=== PATIENT | male | born 1940 | race Hispanic/Latino ===

== ENCOUNTER 2017-06-24 15:57 | Inpatient (IN) | payer MEDICARE, BC ==
[2017-06-24 16:00] VITALS: BMI 24.4
--- NOTE | 2017-06-24 16:56 | RAD ---
HISTORY: Sepsis Patient COMPARISON: No prior. FINDINGS: LUNGS: No active pulmonary disease. PLEURA: No significant pleural effusion identified, no pneumothorax apparent. CARDIOVASCULAR: Normal. OSSEOUS STRUCTURES: No significant abnormalities. VISUALIZED UPPER ABDOMEN: Normal. OTHER FINDINGS: None. IMPRESSION: No active disease.
--- NOTE | 2017-06-24 17:27 | ED PDOC ---
Arrival/HPI - General Chief Complaint: Fever Time Seen by Provider: 06/24/17 16:10 Historian: Patient - History of Present Illness Narrative History of Present Illness (Text): 06/24/17 17:24 77 yo M w/ pmh of HTN, high cholesterol, esophageal stricture, c/o of multiple episodes of watery nonbloody diarrhea x 3 days with fever Tmax of 102.8, had a fever this AM of 101, took tylenol with no fever since. Was seen and treated at an urgent care in [facility], had labs done which showed dehydration and TAM, given 1 L of fluids IV. States that his symptoms started after eating a turkey sandwich. Otherwise: (-) abdominal pain, (-) nausea / vomiting, (-) urinary symptoms, (-) fever, (-) melena, (-) hematochezia. Has no history of prior abdominal surgery. PMD [place] Past Medical History - Provider Review Nursing Documentation Reviewed: Yes - Infectious Disease Hx of Infectious Diseases: None - Cardiac Hx Cardiac Disorders: Yes Hx Hypertension: Yes Hx Pacemaker: No - Pulmonary Hx Respiratory Disorders: No - Neurological Hx Neurological Disorder: No Hx Paralysis: No - HEENT Hx HEENT Disorder: No - Renal Hx Renal Disorder: No - Endocrine/Metabolic Hx Endocrine Disorders: No - Hematological/Oncological Hx Blood Disorders: No Hx Blood Transfusions: No Hx Blood Transfusion Reaction: No - Integumentary Hx Dermatological Disorder: No - Musculoskeletal/Rheumatological Hx Musculoskeletal Disorders: No - Gastrointestinal Hx Gastrointestinal Disorders: No - Genitourinary/Gynecological Hx Genitourinary Disorders: No - Psychiatric Hx Psychophysiologic Disorder: No Hx Emotional Abuse: No Hx Physical Abuse: No Hx Substance Use: No - Anesthesia Hx Anesthesia: Yes Hx Anesthesia Reactions: No Hx Malignant Hyperthermia: No - Suicidal Assessment Feels Threatened In Home Enviroment: No Family/Social History - Physician Review Nursing Documentation Reviewed: Yes Family/Social History: Unknown Family HX Smoking Status: Never Smoked Hx Alcohol Use: No Hx Substance Use: No Allergies/Home Meds Allergies/Adverse Reactions: Allergies No Known Allergies Allergy (Verified 06/24/17 15:59) Home Medications: Home Meds Medication Instructions Recorded Confirmed Amlodipine/Valsartan [Exforge 1 tab PO QAM 06/26/16 06/24/17 10-320 mg Tablet] Atorvastatin [Lipitor] 10 mg PO QAM 06/26/16 06/24/17 Lisinopril [Zestril] 20 mg PO QAM 06/26/16 06/24/17 Esomeprazole Magnesium [Nexium] 20 mg PO DAILY 08/04/16 06/24/17 Review of Systems - Review of Systems Constitutional: Normal. absent: Fatigue, Weight Change, Fevers Respiratory: Normal. absent: SOB, Cough, Sputum Cardiovascular: Normal. absent: Chest Pain, Palpitations, Edema Gastrointestinal: Normal, Diarrhea. absent: Abdominal Pain, Nausea, Vomiting Musculoskeletal: Normal. absent: Arthralgias, Back Pain, Neck Pain Skin: Normal. absent: Rash, Pruritis, Skin Lesions Physical Exam - Physical Exam Narrative Physical Exam (Text): 06/24/17 17:28 GENERAL APPEARANCE: Patient is awake, alert, oriented x 3, in no acute distress. SKIN: Warm, dry; (-) cyanosis. EYES: (-) conjunctival pallor, (-) scleral icterus. ENMT: Mucous membranes dry. NECK: (-) tenderness, (-) stiffness, (-) lymphadenopathy. CHEST AND RESPIRATORY: (-) rales, (-) rhonchi, (+) faint expiratory wheezing; breath sounds equal bilaterally. HEART AND CARDIOVASCULAR: (-) irregularity; (-) murmur, (-) gallop. ABDOMEN AND GI: (-) distention. Bowel sounds active; (-) tenderness, (-) guarding, (-) rebound, (-) palpable masses, (-) CVA tenderness. RECTAL : (-) tenderness, (-) mass, (-) stool impaction. Guiaic (-). 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 EXTREMITIES: (-) deformity, (-) edema, (+) distal pulses. NEURO AND PSYCH: Mental status as above; (-) focal findings. Vital Signs Temp Pulse Resp BP Pulse Ox 06/24/17 20:00 98.2 F 84 18 156/62 H 99 06/24/17 17:56 98.9 F 94 H 18 160/68 H 98 06/24/17 16:05 97.8 F 103 H 18 165/70 H 97 Medical Decision Making ED Course and Treatment: 06/24/17 17:27 77 yo M w/ pmh of HTN, high cholesterol, esophageal stricture, c/o of multiple episodes of watery nonbloody diarrhea x 3 days with fever. Plan: -- Labs -- IV fluids -- Urinalysis -- EKG -- CXR -- Albuterol neb x1 -- Stool for C diff / cx / occult blood -- Reassess and disposition 06/24/17 19:44 EKG: NSR at 91 bpm, (+) LBBB, (-) acute ST changes, as read by PA. CXR : NAD, as read by PA VS : Rectal T 98.9 P 94 BP 160/68 R 18 O2sat 98%RA Lab results reviewed : Hgb 10.5 (last on 06/2016 hgb was 13), Bun 36 / Creat 2.2 (last on 06/2016 Bun 34 / Creat 1.3). Diagnostic results d/w the patient in great detail. On re-evaluation, patient is laying in bed comfortably in no acute distress. IVF infusing. Patient reports no nausea, abdominal pain or diarrhea while in the ER. Still afebrile, VS : T 98.2 oral P 84 BP 156/62 R 18 O2sat 99%RA. Based on history, exam and diagnostic results plan will be for inpatient observation. Patient states he fully agrees with and understands further plan of care. I have given the patient opportunity to ask any additional questions. Case d/w Dr. Snider, agree with plan, under med inspector semiconductor wafer service. Case d/w Dr. Rodriguez, she agrees with plan for further inpt treatment. Bridge orders placed. Request to hold zestril and exforge and to consult Dr. Snider. - Lab Interpretations Lab Results: 06/24/17 17:30 06/24/17 17:30 Lab Results 06/24/17 18:30: Urine Color Light brown, Urine Appearance Cloudy, Urine pH 6.0, Ur Specific [place] 1.025, Urine Protein 100 H, Urine Glucose (UA) Negative, Urine Ketones Negative, Urine Blood Large H, Urine Nitrate Negative, Urine Bilirubin Negative, Urine Urobilinogen 0.2, Ur Leukocyte Esterase Negative, Urine RBC Tntc, Urine WBC 1 - 3, Ur Epithelial Cells 1 - 3, Urine Bacteria Few, Urine Other Uyeast 06/24/17 18:00: pO2 209 H, VBG pH 7.30 L, VBG pCO2 35.0 L, VBG HCO3 17.2 L, VBG Total CO2 18.3 L, VBG O2 Sat (Calc) 99.0 H, VBG Base Excess -8.4 L, VBG Potassium 5.5 H, Glucose 107, Lactate 0.9, FiO2 21.0, Sodium 139.0, Chloride 115.0 H, Venous Blood Potassium 5.5 H 06/24/17 17:30: Sodium 142, Potassium 4.2, Chloride 110 H, Carbon Dioxide 21, Anion Gap 15, BUN 36 H, Creatinine 2.2 H, Est GFR ( Amer) 35, Est GFR ( Non-Af Amer) 29, Random Glucose 107, Calcium 8.8, Phosphorus 4.2, Magnesium 2.0 , Total Bilirubin 0.4, AST 25, ALT 27, Alkaline Phosphatase 63, Total Protein 7.5, Albumin 3.7, Globulin 3.8, Albumin/Globulin Ratio 1.0 L 06/24/17 17:30: PT 11.4, INR 1.04, APTT 29.8 06/24/17 17:30: WBC 9.9 D, RBC 3.67, Hgb 10.5 L, Hct 32.9 L, MCV 89.6, MCH 28.6 , MCHC 31.9, RDW 13.6, Plt Count 230, MPV 10.0, Gran % 76.1 H, Lymph % (Auto) 14.9 L, [place] % (Auto) 7.5 H, Eos % (Auto) 1.3 L, Baso % (Auto) 0.2, Gran # 7.51 H, Lymph # 1.5, Craven # 0.7 H, Eos # 0.1, Baso # 0.02 - RAD Interpretation Radiology Orders: 06/24/17 16:16 CHEST PORTABLE [RAD] Stat 06/24/17 19:41 RENAL [US] Stat - Medication Orders Current Medication Orders: Acetaminophen (Tylenol 325mg Tab) 650 mg PO Q6H PRN PRN Reason: Fever >100.4 F Acetaminophen (Tylenol 325mg Tab) 650 mg PO Q4H PRN PRN Reason: Fever >100.5 F Sodium Chloride (Sodium Chloride 0.9%) 1,000 mls @ 150 mls/hr IV .Q6H40M [facility]END[facility] Last Admin: 06/24/17 21:11 Dose: 150 mls/hr eMAR Start Stop Document 06/24/17 21:11 MAURISIO (Rec: 06/24/17 21:11 MAURISIO [id number]) Intravenous Solution Start Date 06/24/17 Start Time 21:11 Ceftriaxone Sodium (Rocephin 1 Gram Ivpb) 1 gm in 100 mls @ 100 mls/hr IVPB DAILY [facility] PRN Reason: Protocol Metronidazole (Flagyl) 500 mg in 100 mls @ 100 mls/hr IVPB Q8 BRENDAN PRN Reason: Protocol Nitroglycerin (Nitro-Bid 2% Oint) 1 ea TOP Q6H PRN PRN Reason: Other Discontinued Medications Albuterol/Ipratropium (Duoneb 3 Mg/0.5 Mg (3 Ml) Ud) 3 ml IH STAT STA Stop: 06/24/17 19:17 Last Admin: 06/24/17 21:06 Dose: 3 ml Sodium Chloride (Sodium Chloride 0.9%) 1,000 mls @ 1,000 mls/hr IV .Q1H STA Stop: 06/24/17 20:15 Last Admin: 06/24/17 20:02 Dose: 1,000 mls/hr eMAR Start Stop Document 06/24/17 20:02 MAURISIO (Rec: 06/24/17 21:03 MAURISIO [id number]) Intravenous Solution Start Date 06/24/17 Start Time 20:02 End Date 06/24/17 End time 21:02 Total Infusion Time 60 - PA / RESEARCH FOOD TECHNOLOGIST / Resident Statement MD/DO has reviewed & agrees with the documentation as recorded. Disposition/Present on Arrival - Present on Arrival Any Indicators Present on Arrival: No History of DVT/PE: No History of Uncontrolled Diabetes: No Urinary Catheter: No History of Decub. Ulcer: No History Surgical Site Infection Following: None - Disposition Have Diagnosis and Disposition been Completed?: Yes Diagnosis: Dehydration, Acute kidney injury, Diarrhea Disposition: HOSPITALIZED Disposition Time: 19:46 Patient Plan: Admission Patient Problems: Current Active Problems Problem Status Onset Acute kidney injury Acute Dehydration Acute Diarrhea Acute Condition: STABLE
[2017-06-24 17:56] LABS: BASO # 0.02 K/mm3 (0.0-2.0); BASO % 0.2 % (0.0-3.0); EOS # 0.1 (0.0-0.7); EOS % 1.3 % (1.5-5.0); GRAN # 7.51 (1.4-6.5); GRAN % 76.1 % (50.0-68.0); HEMATOCRIT 32.9 % (42.0-52.0); LYMPH # 1.5 (1.2-3.4); LYMPH % 14.9 % (22.0-35.0); MEAN CELL VOLUME 89.6 fl (80.0-105.0); MEAN CORPUSCULAR HEMOGLOBIN 28.6 pg (25.0-35.0); MEAN CORPUSCULAR HGB CONC 31.9 g/dl (31.0-37.0); MONO # 0.7 (0.1-0.6); MONO % 7.5 % (1.0-6.0); RED CELL DISTRIBUTION WIDTH 13.6 % (11.5-14.5); WHITE BLOOD COUNT 9.9 10^3/ul (4.5-11.0)
[2017-06-24 18:06] LABS: BILIRUBIN,TOTAL 0.4 mg/dL (0.2-1.3); CALCIUM 8.8 mg/dL (8.4-10.5); PHOSPHOROUS 4.2 mg/dL (2.5-4.5); POTASSIUM 4.2 mmol/L (3.6-5.0); TOTAL PROTEIN 7.5 g/dL (5.8-8.3)
[2017-06-24 18:08] LABS: VENOUS BLOOD GAS BASE EXCESS -8.4 mmol/L (0.0-2.0)
[2017-06-24 18:10] LABS: INR 1.04 (0.93-1.08); PARTIAL THROMBOPLASTIN TIME 29.8 Seconds (25.1-36.5)
[2017-06-24 18:38] LABS: URINE BILIRUBIN NEGATIVE (NEGATIVE); URINE BLOOD LARGE (NEGATIVE); URINE GLUCOSE (UA) NEGATIVE (NEGATIVE); URINE KETONE NEGATIVE (NEGATIVE); URINE LEUKOCYTE ESTERASE NEGATIVE Leu/uL (NEGATIVE); URINE PROTEIN 100 mg/dL (<30 mg/dL); URINE UROBILINOGEN 0.2 E.U./dL (<1 E.U./dL)
[2017-06-24 18:40] LABS: URINE APPEARANCE CLOUDY (CLEAR); URINE COLOR LIGHT BROWN (YELLOW)
[2017-06-24 18:58] LABS: URINE RBC TNTC /hpf (0-2)
[2017-06-24 18:59] LABS: URINE BACTERIA FEW (NEG)
[2017-06-24] MEDS ORDERED: Albuterol-Ipratrop 3 mg / 0.5 (3 ml) UD IH STA (19:16)
[2017-06-24] MEDS ORDERED: Sodium Chloride 0.9% 1,000 ML IV STA (19:16)
[2017-06-24] MEDS ORDERED: Nitroglycerin 2% Ointment Foilpak UD TOP PRN (19:39)
[2017-06-24] MEDS: Sodium Chloride 0.9% 1,000 ML IV SCH (21:11)
--- NOTE | 2017-06-24 22:12 | US ---
EXAM: US Retroperitoneal Complete, Renal EXAM DATE/TIME: 06/24/2017 7:41 PM CLINICAL HISTORY: 77 years old, male; Signs and symptoms; Vomiting; Additional info: Azotemia TECHNIQUE: Real-time ultrasound of the retroperitoneum (complete) with image documentation. COMPARISON: No relevant prior studies available. FINDINGS: Right kidney: Within normal limits in appearance for age. Measures 9.9 cm in length. No evidence of hydronephrosis. No renal calculi are visible sonographically. Left kidney: Contains 2 lesions, which have ultrasound features most compatible with simple cysts. The larger measures 5 x 3.5 x 3.4 cm. The smaller measures 2.3 x 1.8 cm. both lesions are located in the upper pole. Otherwise within normal limits in appearance. Measures 10.1 cm in length. No evidence of hydronephrosis. No renal calculi are visible sonographically. Bladder: Not specifically imaged. IMPRESSION: No evidence of hydronephrosis or other acute sonographic abnormality of the kidneys. Left renal cysts. See above for remaining findings.
[2017-06-25] MEDS: metroNIDAZOLE IV 500 mg/100 ml 500 MG/100 ML BAG IVPB SCH ×4 (00:24→21:22)
[2017-06-25] MEDS: cefTRIAXone 1 gm 1 GM/100 ML BAG IVPB SCH ×2 (01:42→10:50)
[2017-06-25 07:31] LABS: HEMATOCRIT 29.1 % (42.0-52.0); MEAN CORPUSCULAR HEMOGLOBIN 28.4 pg (25.0-35.0); MEAN PLATELET VOLUME 9.8 fl (7.0-11.0); RED CELL DISTRIBUTION WIDTH 13.7 % (11.5-14.5); WHITE BLOOD COUNT 8.9 10^3/ul (4.5-11.0)
[2017-06-25 07:53] LABS: CALCIUM 8.4 mg/dL (8.4-10.5); POTASSIUM 4.2 mmol/L (3.6-5.0)
[2017-06-25 08:13] LABS: IRON 13 ug/dL (45-180)
--- NOTE | 2017-06-25 10:12 | CARD ---
APPROVED REPORT EKG Measurement Heart [id number] <Conclusion> Normal sinus rhythm Left bundle branch block Abnormal ECG
[2017-06-25 12:23] LABS: FOLATE > 20.0 ng/mL
--- NOTE | 2017-06-25 15:47 | HP ---
HISTORY OF PRESENT ILLNESS: This 77-year-old male presented to [facility], ER with complaint of recurrent and profuse diarrhea. He stated it started Sunday evening, persisted all day Sunday. He went to a local Urgent Care near [place], [place], where he resides and was found to be clinically dehydrated and advised to come to the Medical Center for further evaluation of the above. The patient states that since admission he has had five episodes of watery diarrhea and to date no samples have been collected, though ordered on his chart. PAST MEDICAL HISTORY: The patient's past medical history is significant for chronic hypertension, peptic ulcer disease with gastroesophageal reflux disease, history of esophageal stricture that has been dilated and history of hyperlipidemia. REVIEW OF SYSTEMS: CONSTITUTIONAL: The patient on review of systems on constitutional review, denied fever or chills. HEENT: On eye, review denied change in visual acuity. Ear reviewed denied hearing loss. Throat reviewed no swallowing difficulty. Neck review, no stiffness. CARDIOVASCULAR: Cardiac reviewed chronic hypertension. He denies any chest pain or shortness of breath. PULMONARY: No cough. No hemoptysis. GASTROINTESTINAL: The onset of watery diarrhea on Sunday evening that is persistent at present. GENITOURINARY: He denied any dysuria or and has a history of chronic renal insufficiency with reported previous baseline creatinine of 1.4 by Emergency Room physician who reviewed his labs from a year ago. VASCULAR: No claudication. PSYCHOLOGICAL: No depression. NEUROLOGIC: No knowledge of stroke. ENDOCRINOLOGIC: No reports of diabetes. History of hyperlipidemia. HEME: He has a history of iron-deficiency anemia secondary to gastroesophageal reflux disease and esophageal stricture when I questioned the patient if he has ever had colonoscopy he said no. FAMILY HISTORY: Non applicable. SOCIAL HISTORY: He is a nonsmoker, social drinker, and non IV drug mis-user. He is a retired gentleman. ALLERGIES: WITH NO KNOWN ALLERGIES TO MEDICATION. MEDICATIONS: Outpatient medications had included Zestril, Nexium, Lipitor and Norvasc/valsartan. PHYSICAL EXAMINATION: GENERAL: The patient is alert and oriented, lying in bed, fully cooperative and answering all questions, in no acute distress. IV fluids are infusing. VITAL SIGNS: Temperature is 97.5, respirations are 20, pulse is 85, blood pressure is 165/70 with a pulse oximetry of 97% room air. HEENT: Head is normocephalic and atraumatic. Eyes: No icterus. Ears: Clear. Throat: Noninjected. NECK: Supple CARDIOVASCULAR: Heart is regular S1 and S2. LUNGS: Clear. ABDOMEN: Soft. No palpable organomegaly. No rebound, no guarding, and no tenderness. EXTREMITIES: No clubbing, no cyanosis, and no edema. SKIN: Poor turgor. VASCULAR: Legs are warm to touch. PSYCHOLOGICAL: He is alert and oriented x3. NEUROLOGIC: Grossly intact. RECTAL: Rectal exam by emergency room staff reportedly negative for blood. LABORATORY DATA: White count of 8900, hemoglobin of 9.3, hematocrit of 29.1, and platelets 202,000. PT/INR of 1.04, and PTT of 29.8. Sodium of 144, potassium of 4.2, chloride of 117, bicarbonate of 18, BUN of 29, and creatinine of 1.6. Admission BUN of 36 and creatinine of 2.2. Magnesium is normal of 2.0. Bilirubin is 0.4, AST is 25, ALT is 27, and alkaline phosphatase of 63. Iron level is low 13, percent saturation low 5, ferritin of 52.7, B12 of 841, and folic acid level pending. Urinalysis showed too numerous to count red blood cells, no cast and few bacteria. IMPRESSION AND PLAN: He is a 77-year-old male with new onset diarrhea acute on chronic renal failure in the setting of clinical dehydration, iron-deficiency anemia, history of esophageal stricture chronic hypertension and hyperlipidemia. The plan as discussed with the patient and nursing in detail is to continue intravenous fluids of 0.9 saline at 150 mL per hour. He is ordered to have a consultation with Dr. Qi Snider from Gastrointestinal and Dr. Dwight Cordova from Infectious Diseases. He continues on nitroglycerin 1 inch to chest wall q. 6 hours. p.r.n. accelerated hypertension if systolic blood pressure greater than 160 or diastolic blood pressure greater than 100. I have asked the nursing staff to ensure that he obtain his stools for culture and sensitivity, ova and parasites of stool and Clostridium difficile toxin. Urine culture has been received as well. He is ordered to have Tylenol 650 mg p.o. q. 6 hours. p.r.n. pain or temperature greater than 101. He has been ordered to receive Flagyl 500 mg intravenous q. 8 hours. and Rocephin 1 gram intravenous q. [address] Qi Snider from Gastroenterology. The patient is on a clear liquid diet as tolerated. I will order Pepcid 20 mg p.o. at bedtime and follow serial laboratories. The patient was advised that because of his hematuria, he will need outpatient urological followup and probable cystoscopy and prostate evaluation. I did review his chest x-ray that shows no active disease and no infiltrate and electrocardiogram that showed normal sinus rhythm with nonspecific ST-T wave changes and a renal ultrasound that showed no evidence of renal masses hydronephrosis or stones. Additional testing and workup will be entertained based on the patient's clinical progress. Greater than fifty minutes was spent in the care, counseling, management, review of labs ordering of medication and review of x-rays and talking with staff and co-consultants and the patient at bedside. All questions were answered. Maya Rodriguez MD MTDD
[2017-06-25] MEDS: Sodium Chloride 0.9% 1,000 ML IV SCH (18:50)
--- NOTE | 2017-06-25 19:07 | CP.PCM.CON ---
History of Present Illness - History of Present Illness History of Present Illness: Infectious Disease Consulation: June 25, 2017 77 yo male with recurrent and profuse diarrhea. Symptoms started on Sunday night and continued to Sunday. Patient had fevers up to 102.8 F. The patient went to an Urgent Care where he received 1L of IV fluids. He states symptoms started after eating a turkey sandwich. Supportive care. PMHx: HTN, high cholesterol, esophageal stricture PSHx: None given Allergies: NKDA Social Hx: No tobacco, EtOH, or illicit drug use Active Medications Acetaminophen (Tylenol 325mg Tab) 650 mg PO Q6H PRN PRN Reason: Fever >100.4 F Acetaminophen (Tylenol 325mg Tab) 650 mg PO Q4H PRN PRN Reason: Fever >100.5 F Amlodipine Besylate (Norvasc) 5 mg PO DAILY [facility] Last Admin: 06/25/17 12:55 Dose: 5 mg Famotidine (Pepcid) 20 mg PO HS [facility] Sodium Chloride (Sodium Chloride 0.9%) 1,000 mls @ 150 mls/hr IV .Q6H40M [facility] Last Admin: 06/25/17 18:50 Dose: 150 mls/hr Ceftriaxone Sodium (Rocephin 1 Gram Ivpb) 1 gm in 100 mls @ 100 mls/hr IVPB DAILY [facility] PRN Reason: Protocol Last Admin: 06/25/17 10:50 Dose: 100 mls/hr Metronidazole (Flagyl) 500 mg in 100 mls @ 100 mls/hr IVPB Q8 [facility] PRN Reason: Protocol Last Admin: 06/25/17 14:44 Dose: 100 mls/hr Nitroglycerin (Nitro-Bid 2% Oint) 1 ea TOP Q6H PRN PRN Reason: Other Family Hx: none given ROS: fevers, diarrhea, abdominal discomfort. No chest pain, melena, hematuria, hematemesis, hematochezia, depression, anxiety , diarrhea, LOC, dizziness, blindness, cough, vomiting, SOB. Past Patient History - Infectious Disease Hx of Infectious Diseases: None - Past Social History Smoking Status: Never Smoked - CARDIAC Hx Cardiac Disorders: Yes Hx Hypertension: Yes Hx Pacemaker: No - PULMONARY Hx Respiratory Disorders: No - NEUROLOGICAL Hx Neurological Disorder: No - HEENT Hx HEENT Problems: No - RENAL Hx Chronic Kidney Disease: No - ENDOCRINE/METABOLIC Hx Endocrine Disorders: No - HEMATOLOGICAL/ONCOLOGICAL Hx Blood Disorders: No - INTEGUMENTARY Hx Dermatological Problems: No - MUSCULOSKELETAL/RHEUMATOLOGICAL Hx Musculoskeletal Disorders: No Hx Falls: No - GASTROINTESTINAL Hx Gastrointestinal Disorders: No - GENITOURINARY/GYNECOLOGICAL Hx Genitourinary Disorders: No - PSYCHIATRIC Hx Psychophysiologic Disorder: No Hx Emotional Abuse: No Hx Physical Abuse: No - SURGICAL HISTORY Hx Surgeries: Yes - ANESTHESIA Hx Anesthesia: Yes Hx Anesthesia Reactions: No Hx Malignant Hyperthermia: No Meds Allergies/Adverse Reactions: Allergies Allergy/AdvReac Type Severity Reaction Status Date / Time No Known Allergies Allergy Verified 06/24/17 15:59 - Medications Medications: Current Medications Acetaminophen (Tylenol 325mg Tab) 650 mg PO Q6H PRN PRN Reason: Fever >100.4 F Acetaminophen (Tylenol 325mg Tab) 650 mg PO Q4H PRN PRN Reason: Fever >100.5 F Amlodipine Besylate (Norvasc) 5 mg PO DAILY [facility] Last Admin: 06/25/17 12:55 Dose: 5 mg Famotidine (Pepcid) 20 mg PO HS [facility] Sodium Chloride (Sodium Chloride 0.9%) 1,000 mls @ 150 mls/hr IV .Q6H40M [facility] Last Admin: 06/25/17 18:50 Dose: 150 mls/hr Ceftriaxone Sodium (Rocephin 1 Gram Ivpb) 1 gm in 100 mls @ 100 mls/hr IVPB DAILY [facility] PRN Reason: Protocol Last Admin: 06/25/17 10:50 Dose: 100 mls/hr Metronidazole (Flagyl) 500 mg in 100 mls @ 100 mls/hr IVPB Q8 [facility] PRN Reason: Protocol Last Admin: 06/25/17 14:44 Dose: 100 mls/hr Nitroglycerin (Nitro-Bid 2% Oint) 1 ea TOP Q6H PRN PRN Reason: Other Physical Exam - Constitutional Appears: Non-toxic, No Acute Distress - Head Exam Head Exam: ATRAUMATIC, NORMOCEPHALIC - Eye Exam Eye Exam: EOMI, PERRL Pupil Exam: NORMAL ACCOMODATION, PERRL - ENT Exam ENT Exam: Mucous Membranes Moist, Normal External Ear Exam, TM's Normal Bilaterally - Neck Exam Neck exam: Positive for: Full Rom, Normal Inspection - Respiratory Exam Respiratory Exam: Clear to Auscultation Bilateral, NORMAL BREATHING PATTERN. absent: Rales, Rhonchi, Wheezes - Cardiovascular Exam Cardiovascular Exam: REGULAR RHYTHM, RRR, +S1, +S2 - GI/Abdominal Exam GI & Abdominal Exam: Normal Bowel Sounds, Soft. absent: Distended, Tenderness - Extremities Exam Extremities exam: Positive for: full ROM, normal inspection - Neurological Exam Neurological exam: Alert, CN II-XII Intact, Oriented x3 - Psychiatric Exam Psychiatric exam: Normal Affect, Normal Mood - Skin Skin Exam: Intact, Normal Color Results - Vital Signs Recent Vital Signs: Last Vital Signs Temp 98.1 F 06/25/17 16:04 Pulse 77 06/25/17 16:04 Resp 20 06/25/17 16:04 BP 134/70 06/25/17 16:04 Pulse Ox 98 06/25/17 16:04 - Labs Result Diagrams: 06/25/17 07:00 06/25/17 07:00 Labs: Laboratory Results - last 24 hr 06/25/17 06/25/17 06/25/17 07:00 07:00 07:49 WBC 8.9 RBC 3.27 L Hgb 9.3 L Hct 29.1 L MCV 89.0 MCH 28.4 MCHC 32.0 RDW 13.7 Plt Count 202 MPV 9.8 Sodium 144 Potassium 4.2 Chloride 117 H Carbon Dioxide 18 L Anion Gap 13 BUN 29 H Creatinine 1.6 H Est GFR ( Amer) 51 Est GFR (Non-Af Amer) 42 Random Glucose 87 Calcium 8.4 Iron 13 L TIBC 270 % Saturation 5 L Assessment & Plan - Assessment and Plan (Free Text) Assessment: 77 yo male with 3 days of profuse diarrhea. Fevers up to 102.8 F. Obtain Abdominal X-ray to help determine colitis/diverticulitis. Patient may need CT scan. IV hydration. Supportive care. On IV Rocephin and Flagyl at this time. C. diff studies. Stool studies. Would obtain tabares cultures with next fever. Would also switch Rocephin to Zosyn for coverage as Rocephin has a much high chance of altering bowel microbiology. Thank you for allowing me to participate in the care of the patient, we will follow with you.
[2017-06-25] MEDS: Piperacillin/Tazobact 3.375 gm 100 ML IVPB SCH (23:20)
--- NOTE | 2017-06-26 00:57 | CON ---
DATE: 06/25/2017 HISTORY OF PRESENT ILLNESS: This patient was seen and evaluated earlier today. This 77-year-old patient had some turkey on , Sunday he was okay, Sunday morning, he had some egg, in the evening he had acute watery diarrhea and he was spiking temperature. He was seen on Sunday in [facility] [place]. He was found to be dehydrated with creatinine of 2.6. He was advised to go to the Emergency Room, but he did not go. He came to the [facility] Emergency Room on Sunday evening. He was found to have creatinine of 2.2, has come down. The patient remained afebrile here in the hospital. PAST MEDICAL HISTORY: His other past medical history is significant for esophageal stricture, Schatzki's Ring, status post dilation. The patient had an endoscopy done initially this year, which is found to have an ulceration. The patient was concerned about taking PPI, was changed to H2 blockers, then followup endoscopy showed recurrence of the ulceration. The patient was then put back on low-dose PPI along with the H2 blockers, which he has been taking it. The patient is tolerating the diet now. Other past medical history is significant as above,has dyslipidemia and hypertension. FAMILY HISTORY: Noncontributory. ALLERGIES: NO KNOWN DRUG ALLERGIES. SOCIAL HISTORY: Denies smoking. Alcohol socially. REVIEW OF SYSTEMS: All other systems reviewed and negative. PHYSICAL EXAMINATION GENERAL: The patient is lying on the bed, not in acute distress. VITAL SIGNS: Temperature is 98.1, blood pressure 134/70, pulse 77, respirations 20, O2 saturation 98. HEENT: Atraumatic and anicteric. NECK: Supple. HEART: S1 and S2 heard. LUNGS: Bilateral air entry present. ABDOMEN: Soft. There is no mass palpable. No tenderness. EXTREMITIES: No edema, no cyanosis. NEUROLOGICAL: Alert and oriented. Moves all extremities. LABORATORY DATA: Hemoglobin is 9.3, hematocrit 29.1, WBC is 8.9, platelets 202. Chemistries, BUN is 36, creatinine is 2.2. IMPRESSION: 1. This 77-year-old patient has an acute onset of diarrhea, vomiting and has a high fever, clinically is more suggestive of acute gastroenteritis. Concern is that T-max of 102. The patient remains afebrile in the hospital. 2. History of chronic gastroesophageal reflux disease, history of dysphagia, Schatzki's ring, status post dilation, recurrence of the ulceration. The patient is on maintenance low-dose proton pump inhibitor along with H2 franca, which we will continue. 3. Other comorbidities include hypertension and dyslipidemia. RECOMMENDATIONS: 1. Follow up of the stool studies. 2. Follow up of the blood cultures. 3. We will start the patient empirically on ceftriaxone and Flagyl. We will continue to closely followup care and suggest further management based on the clinical course. We will probably start the patient on a clear liquid diet. Thank you very much for allowing me to participate in the care of the patient. Qi Snider MD MTDEduardo
[2017-06-26] MEDS: Piperacillin/Tazobact 3.375 gm 100 ML IVPB SCH ×3 (05:45→17:03)
[2017-06-26] MEDS: metroNIDAZOLE IV 500 mg/100 ml 500 MG/100 ML BAG IVPB SCH ×3 (06:35→21:30)
[2017-06-26 07:29] LABS: HEMATOCRIT 29.3 % (42.0-52.0)
[2017-06-26 07:42] LABS: CALCIUM 8.6 mg/dL (8.4-10.5); POTASSIUM 3.9 mmol/L (3.6-5.0)
--- NOTE | 2017-06-26 09:50 | RAD ---
HISTORY: diarrhea COMPARISON: No prior. FINDINGS: BOWEL: Normal. No obstruction. No free air. BONES: Normal. OTHER FINDINGS: None. IMPRESSION: No active disease.
--- NOTE | 2017-06-26 12:03 | CP.PCM.PN ---
<Amelie Rawls - Last Filed: 06/26/17 12:03> Subjective - Date & Time of Evaluation Date of Evaluation: 06/26/17 Time of Evaluation: 10:25 - Subjective Subjective: S&E at bedside, diarrhea improving had 2 so far, less loose, no bleeding. Tolerated breakfast. Abdominal xray this am negative. No abdominal pain. Objective - Vital Signs/Intake and Output Vital Signs (last 24 hours): Temp Pulse Resp BP Pulse Ox 97.8 F 73 17 141/58 L 93 L 06/26/17 07:31 06/26/17 07:31 06/26/17 07:31 06/26/17 07:31 06/26/17 07:31 Intake and Output: 06/26/17 06/26/17 06:59 18:59 Intake Total 780 Balance 780 - Medications Medications: Current Medications Acetaminophen (Tylenol 325mg Tab) 650 mg PO Q6H PRN PRN Reason: Fever >100.4 F Acetaminophen (Tylenol 325mg Tab) 650 mg PO Q4H PRN PRN Reason: Fever >100.5 F Amlodipine Besylate (Norvasc) 5 mg PO DAILY [facility] Last Admin: 06/26/17 09:23 Dose: 5 mg Famotidine (Pepcid) 20 mg PO HS [facility] Last Admin: 06/25/17 21:22 Dose: 20 mg Metronidazole (Flagyl) 500 mg in 100 mls @ 100 mls/hr IVPB Q8 [facility] PRN Reason: Protocol Last Admin: 06/26/17 06:35 Dose: 100 mls/hr Piperacillin Sod/Tazobactam Sod (Zosyn 3.375 In Ns 100ml) 100 mls @ 200 mls/hr IVPB Q6 [facility] PRN Reason: Protocol Last Admin: 06/26/17 05:45 Dose: 200 mls/hr Sodium Chloride (Sodium Chloride 0.9%) 1,000 mls @ 100 mls/hr IV .Q10H [facility] Nitroglycerin (Nitro-Bid 2% Oint) 1 ea TOP Q6H PRN PRN Reason: Other - Labs Labs: 06/26/17 07:24 06/26/17 07:24 PT 11.4 SECONDS (9.4-12.5) 06/24/17 17:30 INR 1.04 (0.93-1.08) 06/24/17 17:30 APTT 29.8 Seconds (25.1-36.5) 06/24/17 17:30 - Constitutional Appears: No Acute Distress - Eye Exam Eye Exam: Normal appearance. absent: Scleral icterus - ENT Exam ENT Exam: Mucous Membranes Moist - Neck Exam Neck Exam: Normal Inspection - Respiratory Exam Respiratory Exam: NORMAL BREATHING PATTERN. absent: Respiratory Distress - Cardiovascular Exam Cardiovascular Exam: +S1, +S2 - GI/Abdominal Exam GI & Abdominal Exam: Soft, Normal Bowel Sounds. absent: Guarding, Tenderness, Rebound - Extremities Exam Extremities Exam: absent: Calf Tenderness, Pedal Edema - Neurological Exam Neurological Exam: Alert, Awake, Oriented x3 - Skin Skin Exam: Dry, Warm Assessment and Plan - Assessment and Plan (Free Text) Assessment: ASSESSMENT: Acute diarrhea/nausea/fever, maybe gastroenteritis Esophageal stricture/Shatzki's Ring UTI, (+) gram negative sarah Chronic GERD Dehydration Acute RF HTN Dyslipidemia PLAN: FU stool stool studies on Flagyl/Zosyn as per ID on clear liquids on IVF monitor electrolytes continue Pepcid FU ct scan A&P Seen and discussed w/ Dr. Longo. <Qi Snider V - Last Filed: 06/26/17 19:31> Objective - Vital Signs/Intake and Output Vital Signs (last 24 hours): Temp Pulse Resp BP Pulse Ox 98 F 74 20 167/82 H 96 06/26/17 16:37 06/26/17 16:37 06/26/17 16:37 06/26/17 16:37 06/26/17 16:37 - Medications Medications: Current Medications Acetaminophen (Tylenol 325mg Tab) 650 mg PO Q6H PRN PRN Reason: Fever >100.4 F Amlodipine Besylate (Norvasc) 5 mg PO DAILY [facility] Last Admin: 06/26/17 09:23 Dose: 5 mg Famotidine (Pepcid) 20 mg PO HS [facility] Last Admin: 06/25/17 21:22 Dose: 20 mg Metronidazole (Flagyl) 500 mg in 100 mls @ 100 mls/hr IVPB Q8 [facility] PRN Reason: Protocol Last Admin: 06/26/17 13:06 Dose: 100 mls/hr Piperacillin Sod/Tazobactam Sod (Zosyn 3.375 In Ns 100ml) 100 mls @ 200 mls/hr IVPB Q6 [facility] PRN Reason: Protocol Last Admin: 06/26/17 17:03 Dose: 200 mls/hr Sodium Chloride (Sodium Chloride 0.9%) 1,000 mls @ 100 mls/hr IV .Q10H [facility] Last Admin: 06/26/17 13:05 Dose: 100 mls/hr Nitroglycerin (Nitro-Bid 2% Oint) 1 ea TOP Q6H PRN PRN Reason: Other - Labs Labs: PT 11.4 SECONDS (9.4-12.5) 06/24/17 17:30 INR 1.04 (0.93-1.08) 06/24/17 17:30 APTT 29.8 Seconds (25.1-36.5) 06/24/17 17:30 Attending/Attestation - Attestation I have personally seen and examined this patient.: Yes I have fully participated in the care of the patient.: Yes I have reviewed all pertinent clinical information, including history, physical exam and plan: Yes Notes (Text): This is an addendum to GI progress report dictated by Amelie Rawls APN.The patient was seen and examined earlier. Medical records, lab studies, imagings were reviewed. Last 24 hours events reviewed. Agreed with the above treatment plan as outlined in Amelie Rawls APN's notes the with the addition of the following patient was seen and evaluated here earlier patient's was at bedside Feeling much better. Renal function is improving Urine culture grew gram-negative rods Ceftriaxone is no change to Zosyn On examination abdomen soft mild tenderness on deep palpation On liquid diet Requested CT of the abdomen and pelvis with by mouth contrast will follow-up thank you very much for allowing us to participate in the care of the patient 06/26/17 19:29
[2017-06-26] MEDS: Sodium Chloride 0.9% 1,000 ML IV SCH (13:05)
[2017-06-26] MEDS ORDERED: Barium Sulfate Susp 2.1% w/v, 2.0% w/w 450 mL Bottle PO ONE (14:29)
--- NOTE | 2017-06-26 16:35 | CP.PCM.PN ---
Subjective - Date & Time of Evaluation Date of Evaluation: 06/26/17 Time of Evaluation: 12:00 - Subjective Subjective: Infectious Disease Follow Up: June 26, 2017 77 yo male with recurrent and profuse diarrhea. Symptoms started on Sunday night and continued to Sunday. Patient had fevers up to 102.8 F. The patient went to an Urgent Care where he received 1L of IV fluids. He states symptoms started after eating a turkey sandwich. Supportive care. Positive urine cultures with gram negative rods Full identification pending. Objective - Vital Signs/Intake and Output Vital Signs (last 24 hours): Temp Pulse Resp BP Pulse Ox 97.8 F 73 17 141/58 L 93 L 06/26/17 07:31 06/26/17 07:31 06/26/17 07:31 06/26/17 07:31 06/26/17 07:31 - Medications Medications: Current Medications Acetaminophen (Tylenol 325mg Tab) 650 mg PO Q6H PRN PRN Reason: Fever >100.4 F Amlodipine Besylate (Norvasc) 5 mg PO DAILY [facility] Last Admin: 06/26/17 09:23 Dose: 5 mg Famotidine (Pepcid) 20 mg PO HS [facility] Last Admin: 06/25/17 21:22 Dose: 20 mg Metronidazole (Flagyl) 500 mg in 100 mls @ 100 mls/hr IVPB Q8 [facility] PRN Reason: Protocol Last Admin: 06/26/17 13:06 Dose: 100 mls/hr Piperacillin Sod/Tazobactam Sod (Zosyn 3.375 In Ns 100ml) 100 mls @ 200 mls/hr IVPB Q6 [facility] PRN Reason: Protocol Last Admin: 06/26/17 13:05 Dose: 200 mls/hr Sodium Chloride (Sodium Chloride 0.9%) 1,000 mls @ 100 mls/hr IV .Q10H [facility] Last Admin: 06/26/17 13:05 Dose: 100 mls/hr Nitroglycerin (Nitro-Bid 2% Oint) 1 ea TOP Q6H PRN PRN Reason: Other - Labs Labs: PT 11.4 SECONDS (9.4-12.5) 06/24/17 17:30 INR 1.04 (0.93-1.08) 06/24/17 17:30 APTT 29.8 Seconds (25.1-36.5) 06/24/17 17:30 - Constitutional Appears: Non-toxic, No Acute Distress - Head Exam Head Exam: ATRAUMATIC, NORMOCEPHALIC - Eye Exam Eye Exam: EOMI, PERRL Pupil Exam: NORMAL ACCOMODATION, PERRL - ENT Exam ENT Exam: Mucous Membranes Moist, Normal External Ear Exam, TM's Normal Bilaterally - Neck Exam Neck Exam: Full ROM, Normal Inspection - Respiratory Exam Respiratory Exam: Clear to Ausculation Bilateral, NORMAL BREATHING PATTERN. absent: Rales, Rhonchi, Wheezes - Cardiovascular Exam Cardiovascular Exam: REGULAR RHYTHM, RRR, +S1, +S2 - GI/Abdominal Exam GI & Abdominal Exam: Soft, Normal Bowel Sounds. absent: Distended, Tenderness - Extremities Exam Extremities Exam: Full ROM, Normal Inspection - Neurological Exam Neurological Exam: Alert, Awake, CN II-XII Intact, Oriented x3 - Psychiatric Exam Psychiatric exam: Normal Affect, Normal Mood - Skin Skin Exam: Intact, Normal Color Assessment and Plan - Assessment and Plan (Free Text) Assessment: 77 yo male with 3 days of profuse diarrhea. Fevers up to 102.8 F. Obtain Abdominal X-ray to help determine colitis/diverticulitis. Patient may need CT scan. IV hydration. Supportive care. On IV Rocephin and Flagyl at this time. C. diff studies. Stool studies. Would obtain tabares cultures with next fever. Would also switch Rocephin to Zosyn for coverage as Rocephin has a much high chance of altering bowel microbiology. Urine cultures with gram negative rods. Thank you for allowing me to participate in the care of the patient, we will follow with you.
[2017-06-26 16:39] VITALS: RESP 20
[2017-06-27] MEDS: Piperacillin/Tazobact 3.375 gm 100 ML IVPB SCH ×3 (00:03→12:12)
--- NOTE | 2017-06-27 00:10 | CT ---
EXAM: CT Abdomen and Pelvis With Intravenous Contrast CLINICAL HISTORY: 77 years old, male; Pain; Abdominal pain; Acute; Additional info: R/O diverticulitis TECHNIQUE: Axial computed tomography images of the abdomen and pelvis with intravenous contrast. All CT scans at this facility use one or more dose reduction techniques, viz.: automated exposure control; ma/kV adjustment per patient size (including targeted exams where dose is matched to indication; i.e. head); or iterative reconstruction technique. MIP reconstructed images were created and reviewed. Coronal and sagittal reformatted images were created and reviewed. COMPARISON: None. FINDINGS: Lower thorax: The bilateral lung bases are clear. ABDOMEN: Liver: The liver is enlarged and demonstrates diffuse fatty infiltration. Gallbladder and bile ducts: The gallbladder is decompressed, and contains multiple dependent calcified stones. No significant intra- or extrahepatic biliary ductal dilation. Pancreas: Enhances homogeneously. No ductal dilation. No discrete mass. Spleen: No acute findings. Adrenals: No acute findings. Kidneys and ureters: No acute findings. No hydronephrosis or renal calculi. No discrete solid mass. PELVIS: Bladder: No acute findings. Reproductive: No acute findings. Appendix: The appendix is of normal caliber (series 2, image 87) . ABDOMEN and PELVIS: Stomach and bowel: Oral contrast extends to the level of the colon, without obstruction. Mural thickening within the rectum, for which direct visualization is recommended, as a malignancy may have a similar appearance. No diverticulosis, or CT evidence of diverticulitis. Peritoneum: No significant fluid collection. No free air. Lymph nodes: No pathologically enlarged lymph nodes. Vasculature: Calcified atherosclerotic disease. Bones: No acute fracture. IMPRESSION: Cholelithiasis. Normal appendix. Mural thickening within the rectum, for which direct visualization is recommended, as a malignancy may have a similar appearance. No diverticulosis, or CT evidence of diverticulitis.
[2017-06-27] MEDS: metroNIDAZOLE IV 500 mg/100 ml 500 MG/100 ML BAG IVPB SCH ×3 (05:33→21:06)
[2017-06-27] MEDS: Pantoprazole 20 mg EC Tab PO SCH (06:38)
[2017-06-27 07:12] LABS: HEMATOCRIT 27.8 % (42.0-52.0)
[2017-06-27 07:18] LABS: CALCIUM 8.7 mg/dL (8.4-10.5)
--- NOTE | 2017-06-27 07:32 | PQF RENAL ---
This form is a permanent part of the medical record Dr. Rodriguez, Your H &P includes documentation of "acute on chronic kidney failure". Please specify stage of CKD present in this patient. Clarification of your documentation is requested to better reflect the severity of illness and intensity of treatment of your patient. Indicators present [] Oliguria/anuria [] Edema/weight gain [] Hyponatremia [] Confusion/mental status changes [x] Increased Blood Urea Nitrogen/Creatinine [] Increased Potassium/Decreased potassium [] Anemia (male <13.5, female <12.0) [] Proteinuria [] Metabolic Acidosis OR Alkalosis [] Hypotension/shock [] Decreased GFR [] Other: [] Location in the medical record that reflects the above clinical findings: PHYSICIAN'S RESPONSE Based on your medical judgment of the clinical indicators outlined above, are you treating this patient for a known or suspected: [] Acute Renal Failure [] Acute Kidney Injury [] Azotemia/prerenal azotemia [] Chronic kidney disease Stage I [] Stage II [] Stage III [] Stage IV [] [] Other condition/diagnosis:[] [x] If Unable to Determine, please check the box, sign and date. Present On Admission (POA) Indicator: [x] Present at the time of admission [] Not present at the time of admission [] Clinically Undetermined In responding to this query, please exercise your independent professional judgment. The fact that a question is asked does not imply that any particular answer is desired or expected. Thank you for your clarification on this documentation. If you have any questions please call:[ ] * Thank you, [ ]Megan Antony [facility] #[id number] Chronic Kidney Disease Stages *[employer]* Stage I GFR >90 Stage II GFR 60-89 Stage III GFR 30-59 Stage IV GFR 15-29 Stage V~~~~~~~~~~ GFR <15~~~~~~~~~~~~~ MTDD
--- NOTE | 2017-06-27 08:13 | PN ---
DATE: 06/26/2017 SUBJECTIVE: This 77-year-old male was examined at the bedside in the presence of his nurse, Kalani Donnelly, registered nurse. The patient states that since yesterday he has had approximately 10 diarrheal bowel movements,. He denies any fever, chills, hematemesis or melena. He states that the stool is watery in nature and contains no blood that he can notice. He remains weak and deconditioned. He is lying in bed receiving IV fluids and denies any vomiting. PHYSICAL EXAMINATION: VITAL SIGNS: Temperature 97.8, respirations 17, pulse 73, blood pressure 141/58, previously 134/70 with a pulse ox of 98% on room air. HEENT: Head normocephalic, atraumatic. Eyes: No icterus. Ears clear. Throat: Noninjected. NECK: Supple. HEART: Regular S1, S2. No pathological rubs, murmurs or gallops. LUNGS: Clear. ABDOMEN: Soft. No palpable organomegaly. No rebound, no guarding. No tenderness. Hyperactive bowel sounds are present in all four quadrants. EXTREMITIES: Show no clubbing, no cyanosis, no edema. SKIN: Decreased skin turgor but improved from yesterday. VASCULAR: Legs warm to touch. PSYCHOLOGICAL: Alert and anxious. NEUROLOGIC: Grossly intact. LABORATORY DATA: Hemoglobin 9.4, hematocrit 29.3, on admission 10.5; hematocrit 32.9. PT/INR 1.04, PTT 29.8. Sodium 144, K 3.9, chloride 117, bicarb 19, BUN 19, creatinine 1.4, original BUN 36, creatinine 2.2. Estimated GFR 49 mL per minute, iron level low 13, TIBC 270, percent saturation low 5%, ferritin 52.7, vitamin B12 841, folic acid level greater than 20. All liver function testing was normal including bilirubin 0.4, AST 25, ALT 27, alk phos 63. Urinalysis showed too numerous to count red blood cells, few bacteria. Microbiology reports blood cultures no growth at 24 hours. Urine culture is growing a gram-negative sarah, identification and sensitivity pending. Renal ultrasound, No hydronephrosis, no masses, no stones. Chest x-ray: No active disease. No infiltrate. No effusions, no CHF. EKG was reviewed. It reveals normal sinus rhythm with a left bundle branch block and nonspecific ST-T wave changes. IMPRESSION: A 77-year-old male with diarrhea recurrent, clinical dehydration, chronic renal insufficiency stage III, chronic hypertension, history of hyperlipidemia, anxiety neurosis, degenerative arthritis, urinary tract infection, iron-deficiency anemia, metabolic acidosis in the setting of diarrhea. PLAN: As discussed with the patient, nursing, family and co-consultants is to obtain a CT of abdomen without contrast to further evaluate causes of persistent diarrhea including possible diverticulitis. The patient has had stools sent for C. diff toxin, O&P and stool for C and S, results are pending. The patient is currently receiving Zosyn 3.375 g IV q.6 hours adjusted from Rocephin 1 g IV q.24 and also continues on Flagyl 500 mg IV q.8. He is ordered to receive nitroglycerin 1 inch to chest wall q.6h. p.r.n. accelerated hypertension if systolic blood pressure greater than 160 or diastolic blood pressure greater than 100, Norvasc 5 mg p.o. daily has been instituted. He continues on Pepcid 20 mg p.o. at bedtime. He has refused any consideration of proton pump inhibitors. He continues on IV fluids of 0.9 saline dose reduced for 150 to 100 mL per hour and has an order for Tylenol 650 mg p.o. q.6h. p.r.n. pain or temperature greater than 101. He is ordered to have a clear liquid diet which I would not advance until the results of CT of abdomen and pelvis are reviewed by gastroenterology. The patient is ordered out of bed to chair with ambulation with assistance and as discussed with the patient and his , Lucy Borges, he will need a full colonoscopy and endoscopy when stable. I am ordering of PSA and have explained to the patient and his that he will need to follow up with urology regarding his hematuria and consideration for possible cystoscopy with retrograde pyelogram studies for further evaluation of this finding. Greater than 35 minutes was spent in the care, management, counseling and ordering of testing and medications and labs for this patient today. The case was reviewed in detail with himself, his and nurse as well as co-consultants and all x-ray reports, labs and medications were reviewed for this patient today. All questions were answered. Maya Rodriguez MD MTDEduardo
[2017-06-27] MEDS: Sodium Chloride 0.9% 1,000 ML IV SCH (09:37)
--- NOTE | 2017-06-27 14:58 | PN ---
SUBJECTIVE: This 77-year-old male was examined at his bedside in the presence of his nurse, Alaina Lundberg, registered nurse. The patient was out of bed to chair. He states he has had approximately 3 to 5 diarrheal bowel movements since yesterday. He remains on a clear liquid diet as recommended by Gastroenterology. Initially, he refused his CAT scan of the abdomen and pelvis, but when readvised by Dr. Qi Snider from GI, he did proceed with testing. I have reviewed his abdominal pelvic CT. It reveals gallstones, a normal appendix, mural thickening within the rectum for which direct visualization was recommended as a malignancy may have a similar appearance. No diverticulosis nor diverticulitis was noted. This was discussed with the patient in detail. The patient at present is afebrile. He is receiving IV fluids. He is denying fever or chills and remains highly anxious regarding all of the above. PHYSICAL EXAMINATION: VITAL SIGNS: Temperature 97.8, respirations 20, pulse 77, blood pressure 131/71, and a pulse ox of 96% on room air. HEENT: Head; normocephalic, atraumatic. Eyes; no icterus. Ears; clear. Throat; noninjected. NECK: Supple. HEART: Regular S1, S2. No pathological rubs, murmurs or gallops. LUNGS: Clear to auscultation. ABDOMEN: Soft. Hyperactive bowel sounds. No rebound, no guarding. No tenderness. EXTREMITIES: No clubbing, no cyanosis, no edema, improving skin turgor. VASCULAR: Legs warm to touch. PSYCHOLOGICAL: Alert and anxious. NEURO: Grossly intact. SKIN; No rashes or ulcerations. LABORATORY DATA: Sodium 144, K 4.0, chloride 116, bicarb 19, BUN 16, creatinine 1.6. Estimated GFR 42 mL per minute. Random glucose 110. Iron level low 13, TIBC 270, percent saturation low 5%, ferritin level 52.7, B12 normal 841, folic acid greater than 20, PSA 0.5. Hemoglobin 8.9, hematocrit 27.8, PT/INR 1.04, PTT 29.8. Urinalysis; too numerous to count RBCs per high-power field, few bacteria, C. diff toxin negative. Microbiology studies; ova and parasites negative; stool, C and S, no Salmonella, no Shigella. Blood cultures no growth at 48 hours. Urine culture Klebsiella pneumoniae, sensitive to Azactam, Ancef, Maxipime, Rocephin. IMPRESSION: A 77-year-old male with severe diarrheal illness causing acute on chronic renal failure, clinical dehydration, metabolic acidosis with comorbidities of Klebsiella pneumoniae urinary tract infection, history of hyperlipidemia, microhematuria, chronic hypertension, history of peptic ulcer disease with gastroesophageal reflux disease and esophageal stricture, anemia of chronic disease, iron-deficiency anemia, metabolic acidosis, and anxiety neurosis. PLAN: At present was reviewed with the patient, nursing and Dr. iQ Sinder from GI and Dr. Dwight Cordova from Infectious Disease. At present, he continues on Flagyl 500 mg IV q.8 and Zosyn 3.375 g IV q.[address] Cordova is considering switching the patient to oral Omnicef 300 mg p.o. b.i.d. to complete a full 10-day course of oral antibiotics for his newly noted urinary tract infection. Dr. Qi Snider will be discussing with the patient, proceeding with colonoscopy given his abnormal CAT scan findings and concern of possible rectal malignancy in the setting of profuse diarrhea and iron-deficiency anemia. The patient continues on Norvasc 5 mg p.o. daily, Pepcid 20 mg p.o. at bedtime, Protonix 20 mg p.o. q.a.m., nitroglycerin 1 inch to chest wall q.6 hours p.r.n. accelerated hypertension if his systolic blood pressure should be greater than 160 or his diastolic blood pressure should be greater than 100. He continues on 0.9 saline at 100 mL per hour, and he is ordered to receive Tylenol 650 mg p.o. q.6 hours p.r.n. pain or temperature greater than 101. At present, he remains on a clear liquid diet. Any advance will need to be decided by Gastroenterology as discussed with the patient. All of the above was reviewed in detail with the patient's , Lucy Borges, as per the patient's request. Greater than 35 minutes were spent in the discussion of all of the above issues with the patient and his as well as co-consultants from Infectious Disease and Gastroenterology and nurse, Amelie Rawls GI nurse. The case was also reviewed in detail with his nurse, Alaina Mcclain. His overall prognosis remains stable. Hopefully that the patient will be compliant with the above recommendations. All questions were answered. Maya Rodriguez MD MTDEduardo
--- NOTE | 2017-06-27 15:38 | CP.PCM.PN ---
Subjective - Date & Time of Evaluation Date of Evaluation: 06/27/17 Time of Evaluation: 10:00 - Subjective Subjective: Infectious Disease Follow Up: June 27, 2017 77 yo male with recurrent and profuse diarrhea. Symptoms started on Sunday night and continued to Sunday. Patient had fevers up to 102.8 F. The patient went to an Urgent Care where he received 1L of IV fluids. He states symptoms started after eating a turkey sandwich. Supportive care. Positive urine cultures with gram negative rods identified as klebsiella resistant to Zosyn but sensitive to Fluoroquinolones and Cefepime. Patient would like to be discharged from the hospital. Objective - Vital Signs/Intake and Output Vital Signs (last 24 hours): Temp Pulse Resp BP Pulse Ox 97.8 F 77 20 131/71 96 06/27/17 08:46 06/27/17 09:36 06/27/17 08:46 06/27/17 09:36 06/27/17 08:46 Intake and Output: 06/27/17 06/27/17 06:59 18:59 Intake Total 480 360 Balance 480 360 - Medications Medications: Current Medications Acetaminophen (Tylenol 325mg Tab) 650 mg PO Q6H PRN PRN Reason: Fever >100.4 F Amlodipine Besylate (Norvasc) 5 mg PO DAILY [facility] Last Admin: 06/27/17 09:36 Dose: 5 mg Famotidine (Pepcid) 20 mg PO HS [facility] Last Admin: 06/26/17 21:30 Dose: 20 mg Metronidazole (Flagyl) 500 mg in 100 mls @ 100 mls/hr IVPB Q8 [facility] PRN Reason: Protocol Last Admin: 06/27/17 14:08 Dose: 100 mls/hr Sodium Chloride (Sodium Chloride 0.9%) 1,000 mls @ 100 mls/hr IV .Q10H [facility] Last Admin: 06/27/17 09:37 Dose: 100 mls/hr Cefepime HCl (Maxipime 1gm) 1 gm in 100 mls @ 100 mls/hr IVPB Q12 [facility] PRN Reason: Protocol Magnesium Citrate (Citrate Of Mag) 300 ml PO ONCE ONE Stop: 06/27/17 18:01 Nitroglycerin (Nitro-Bid 2% Oint) 1 ea TOP Q6H PRN PRN Reason: Other Pantoprazole Sodium (Protonix Ec Tab) 20 mg PO 0600 [facility] Last Admin: 06/27/17 06:38 Dose: 20 mg - Labs Labs: 06/27/17 06:40 06/27/17 06:40 PT 11.4 SECONDS (9.4-12.5) 06/24/17 17:30 INR 1.04 (0.93-1.08) 06/24/17 17:30 APTT 29.8 Seconds (25.1-36.5) 06/24/17 17:30 - Constitutional Appears: Non-toxic, No Acute Distress, Chronically Ill - Head Exam Head Exam: ATRAUMATIC, NORMOCEPHALIC - Eye Exam Eye Exam: EOMI, PERRL Pupil Exam: NORMAL ACCOMODATION, PERRL - ENT Exam ENT Exam: Mucous Membranes Moist, Normal External Ear Exam, TM's Normal Bilaterally - Neck Exam Neck Exam: Full ROM, Normal Inspection - Respiratory Exam Respiratory Exam: Clear to Ausculation Bilateral, NORMAL BREATHING PATTERN. absent: Rales, Rhonchi, Wheezes - Cardiovascular Exam Cardiovascular Exam: REGULAR RHYTHM, RRR, +S1, +S2 - GI/Abdominal Exam GI & Abdominal Exam: Soft, Normal Bowel Sounds. absent: Distended, Tenderness - Extremities Exam Extremities Exam: Full ROM, Normal Inspection - Neurological Exam Neurological Exam: Alert, Awake, CN II-XII Intact, Oriented x3 - Psychiatric Exam Psychiatric exam: Normal Affect, Normal Mood - Skin Skin Exam: Intact, Normal Color Assessment and Plan - Assessment and Plan (Free Text) Assessment: 77 yo male with 3 days of profuse diarrhea. Fevers up to 102.8 F. Obtain Abdominal X-ray to help determine colitis/diverticulitis. Patient may need CT scan. IV hydration. Supportive care. On IV Rocephin and Flagyl at this time. C. diff studies. Stool studies. Would obtain tabares cultures with next fever. Urine cultures with gram negative rods identified as Klebsiella. Supportive care. Switched antibiotics to Cefepime for treatment. Thank you for allowing me to participate in the care of the patient, we will follow with you.
--- NOTE | 2017-06-27 17:21 | CP.PCM.PN ---
<Amelie Rawls - Last Filed: 06/27/17 17:20> Subjective - Date & Time of Evaluation Date of Evaluation: 06/27/17 Time of Evaluation: 10:40 - Subjective Subjective: S&E at bedside, patient reports diarrhea, remains on full liquids. Ct scan report thickening in rectum, patient denies blood per rectum or discomfort. No new complaints. Objective - Vital Signs/Intake and Output Vital Signs (last 24 hours): Temp Pulse Resp BP Pulse Ox 97.8 F 77 20 131/71 96 06/27/17 12:00 06/27/17 12:00 06/27/17 12:00 06/27/17 12:00 06/27/17 12:00 Intake and Output: 06/27/17 06/27/17 06:59 18:59 Intake Total 480 360 Balance 480 360 - Medications Medications: Current Medications Acetaminophen (Tylenol 325mg Tab) 650 mg PO Q6H PRN PRN Reason: Fever >100.4 F Amlodipine Besylate (Norvasc) 5 mg PO DAILY [facility] Last Admin: 06/27/17 09:36 Dose: 5 mg Famotidine (Pepcid) 20 mg PO HS [facility] Last Admin: 06/26/17 21:30 Dose: 20 mg Metronidazole (Flagyl) 500 mg in 100 mls @ 100 mls/hr IVPB Q8 [facility] PRN Reason: Protocol Last Admin: 06/27/17 14:08 Dose: 100 mls/hr Sodium Chloride (Sodium Chloride 0.9%) 1,000 mls @ 100 mls/hr IV .Q10H [facility] Last Admin: 06/27/17 09:37 Dose: 100 mls/hr Cefepime HCl (Maxipime 1gm) 1 gm in 100 mls @ 100 mls/hr IVPB Q12 [facility] PRN Reason: Protocol Magnesium Citrate (Citrate Of Mag) 300 ml PO ONCE ONE Stop: 06/27/17 18:01 Nitroglycerin (Nitro-Bid 2% Oint) 1 ea TOP Q6H PRN PRN Reason: Other Pantoprazole Sodium (Protonix Ec Tab) 20 mg PO 0600 [facility] Last Admin: 06/27/17 06:38 Dose: 20 mg - Labs Labs: 06/27/17 06:40 06/27/17 06:40 PT 11.4 SECONDS (9.4-12.5) 06/24/17 17:30 INR 1.04 (0.93-1.08) 06/24/17 17:30 APTT 29.8 Seconds (25.1-36.5) 06/24/17 17:30 - Constitutional Appears: No Acute Distress - Eye Exam Eye Exam: Normal appearance. absent: Scleral icterus - ENT Exam ENT Exam: Mucous Membranes Moist - Neck Exam Neck Exam: Normal Inspection - Respiratory Exam Respiratory Exam: NORMAL BREATHING PATTERN. absent: Respiratory Distress - Cardiovascular Exam Cardiovascular Exam: +S1, +S2 - GI/Abdominal Exam GI & Abdominal Exam: Soft, Normal Bowel Sounds. absent: Guarding, Tenderness, Organomegaly, Rebound - Extremities Exam Extremities Exam: Normal Capillary Refill. absent: Calf Tenderness, Pedal Edema - Neurological Exam Neurological Exam: Alert, Awake, Oriented x3 - Skin Skin Exam: Dry, Warm Assessment and Plan - Assessment and Plan (Free Text) Assessment: ASSESSMENT: Abnormal ct scan: rectal wall thickenin, proctitis, r/o malignancy Acute diarrhea/nausea/fever, maybe gastroenteritis Esophageal stricture/Shatzki's Ring UTI, (+) gram negative sarah Chronic GERD Dehydration Acute RF HTN Dyslipidemia PLAN: continue IV antibiotics as per ID change diet to clear liquids on IVF monitor electrolytes continue Protonix plan for flexsigmoiddoscopy in am magnesium citrate in PM, see order Spoke to Dr. Amaya//patient Seen and discussed w/ Dr. Longo. <Qi Snider V - Last Filed: 06/27/17 21:41> Objective - Vital Signs/Intake and Output Vital Signs (last 24 hours): Temp Pulse Resp BP Pulse Ox 97.8 F 77 20 131/71 96 06/27/17 12:00 06/27/17 12:00 06/27/17 12:00 06/27/17 12:00 06/27/17 12:00 Intake and Output: 06/27/17 06/28/17 18:59 06:59 Intake Total 360 Balance 360 - Medications Medications: Current Medications Acetaminophen (Tylenol 325mg Tab) 650 mg PO Q6H PRN PRN Reason: Fever >100.4 F Amlodipine Besylate (Norvasc) 5 mg PO DAILY [facility] Last Admin: 06/27/17 09:36 Dose: 5 mg Famotidine (Pepcid) 20 mg PO HS [facility] Last Admin: 06/27/17 21:06 Dose: 20 mg Metronidazole (Flagyl) 500 mg in 100 mls @ 100 mls/hr IVPB Q8 [facility] PRN Reason: Protocol Last Admin: 06/27/17 21:06 Dose: 100 mls/hr Sodium Chloride (Sodium Chloride 0.9%) 1,000 mls @ 100 mls/hr IV .Q10H [facility] Last Admin: 06/27/17 09:37 Dose: 100 mls/hr Cefepime HCl (Maxipime 1gm) 1 gm in 100 mls @ 100 mls/hr IVPB Q12 [facility] PRN Reason: Protocol Last Admin: 06/27/17 21:05 Dose: 100 mls/hr Nitroglycerin (Nitro-Bid 2% Oint) 1 ea TOP Q6H PRN PRN Reason: Other Pantoprazole Sodium (Protonix Ec Tab) 20 mg PO 0600 [facility] Last Admin: 06/27/17 06:38 Dose: 20 mg - Labs Labs: 06/27/17 06:40 06/27/17 06:40 PT 11.4 SECONDS (9.4-12.5) 06/24/17 17:30 INR 1.04 (0.93-1.08) 06/24/17 17:30 APTT 29.8 Seconds (25.1-36.5) 06/24/17 17:30 Attending/Attestation - Attestation I have personally seen and examined this patient.: Yes I have fully participated in the care of the patient.: Yes I have reviewed all pertinent clinical information, including history, physical exam and plan: Yes Notes (Text): This is an addendum to GI progress report dictated by Amelie Rawls APN.The patient was seen and examined earlier. Medical records, lab studies, imagings were reviewed. Last 24 hours events reviewed. Agreed with the above treatment plan as outlined in Amelie Rawls APN's notes the with the addition of the following Feeling much better abdomen soft no tenderness Discussed with the patient regarding the CT scan finding Schedule for colonoscopy in a.m. Continue the antibiotics as per ID 06/27/17 21:41
[2017-06-27] MEDS ORDERED: Magnesium Citrate Oral SOL (300 ml) PO ONE (18:00)
[2017-06-27] MEDS: Cefepime 1gm in NS 100ml 1 GM/100 ML BAG IVPB SCH (21:05)
[2017-06-28] MEDS: metroNIDAZOLE IV 500 mg/100 ml 500 MG/100 ML BAG IVPB SCH (05:40)
[2017-06-28] MEDS: Pantoprazole 20 mg EC Tab PO SCH (05:40)
[2017-06-28 06:57] LABS: HEMATOCRIT 28.5 % (42.0-52.0); MEAN CELL VOLUME 86.9 fl (80.0-105.0); MEAN CORPUSCULAR HEMOGLOBIN 27.7 pg (25.0-35.0); MEAN CORPUSCULAR HGB CONC 31.9 g/dl (31.0-37.0); MEAN PLATELET VOLUME 9.5 fl (7.0-11.0); RED CELL DISTRIBUTION WIDTH 13.5 % (11.5-14.5)
[2017-06-28 07:07] LABS: CALCIUM 8.9 mg/dL (8.4-10.5); POTASSIUM 4.8 mmol/L (3.6-5.0)
[2017-06-28 10:02] VITALS: TEMP 98.9
[2017-06-28] MEDS ORDERED: Midazolam 2 MG/2 ML VIAL ONE (10:20)
[2017-06-28] MEDS ORDERED: Propofol 10 mg/ml Inj (20 ML) ONE (10:22)
[2017-06-28 10:45] VITALS: O2SAT 99
[2017-06-28] MEDS ORDERED: Sodium Chloride 0.9% 1,000 ML IV SCH (10:45)
[2017-06-28 10:53] VITALS: BP 163/73; PULSE 72
[2017-06-28] MEDS: Cefepime 1gm in NS 100ml 1 GM/100 ML BAG IVPB SCH (11:25)
--- NOTE | 2017-06-28 12:01 | CP.PCM.PN ---
Subjective - Date & Time of Evaluation Date of Evaluation: 06/28/17 Time of Evaluation: 11:50 - Subjective Subjective: Infectious Disease Follow Up: June 28, 2017 77 yo male with recurrent and profuse diarrhea. Symptoms started on Sunday night and continued to Sunday. Patient had fevers up to 102.8 F. The patient went to an Urgent Care where he received 1L of IV fluids. He states symptoms started after eating a turkey sandwich. Supportive care. Positive urine cultures with gram negative rods identified as klebsiella resistant to Zosyn but sensitive to Fluoroquinolones and Cefepime. Patient for colonoscopy this morning. Objective - Vital Signs/Intake and Output Vital Signs (last 24 hours): Temp Pulse Resp BP Pulse Ox 98.9 F 72 20 163/73 H 99 06/28/17 11:07 06/28/17 11:07 06/28/17 11:07 06/28/17 11:07 06/28/17 11:07 Intake and Output: 06/28/17 06/28/17 06:59 18:59 Intake Total 536 Output Total 3 Balance 533 - Medications Medications: Current Medications Acetaminophen (Tylenol 325mg Tab) 650 mg PO Q6H PRN PRN Reason: Fever >100.4 F Amlodipine Besylate (Norvasc) 5 mg PO DAILY [facility] Last Admin: 06/28/17 07:47 Dose: 5 mg Famotidine (Pepcid) 20 mg PO HS [facility] Last Admin: 06/27/17 21:06 Dose: 20 mg Metronidazole (Flagyl) 500 mg in 100 mls @ 100 mls/hr IVPB Q8 [facility] PRN Reason: Protocol Last Admin: 06/28/17 05:40 Dose: 100 mls/hr Cefepime HCl (Maxipime 1gm) 1 gm in 100 mls @ 100 mls/hr IVPB Q12 [facility] PRN Reason: Protocol Last Admin: 06/28/17 11:25 Dose: 100 mls/hr Sodium Chloride (Sodium Chloride 0.9%) 1,000 mls @ 100 mls/hr IV .Q10H [facility] Nitroglycerin (Nitro-Bid 2% Oint) 1 ea TOP Q6H PRN PRN Reason: Other Pantoprazole Sodium (Protonix Ec Tab) 20 mg PO 0600 [facility] Last Admin: 06/28/17 05:40 Dose: 20 mg - Labs Labs: 06/28/17 06:20 06/28/17 06:20 PT 11.4 SECONDS (9.4-12.5) 06/24/17 17:30 INR 1.04 (0.93-1.08) 06/24/17 17:30 APTT 29.8 Seconds (25.1-36.5) 06/24/17 17:30 - Constitutional Appears: Non-toxic, No Acute Distress, Chronically Ill - Head Exam Head Exam: ATRAUMATIC, NORMOCEPHALIC - Eye Exam Eye Exam: EOMI, PERRL Pupil Exam: NORMAL ACCOMODATION, PERRL - ENT Exam ENT Exam: Mucous Membranes Moist, Normal External Ear Exam, TM's Normal Bilaterally - Neck Exam Neck Exam: Full ROM, Normal Inspection - Respiratory Exam Respiratory Exam: Clear to Ausculation Bilateral, NORMAL BREATHING PATTERN. absent: Rales, Rhonchi, Wheezes - Cardiovascular Exam Cardiovascular Exam: REGULAR RHYTHM, RRR, +S1, +S2 - GI/Abdominal Exam GI & Abdominal Exam: Soft, Normal Bowel Sounds. absent: Distended, Tenderness - Extremities Exam Extremities Exam: Full ROM, Normal Inspection - Neurological Exam Neurological Exam: Alert, Awake, CN II-XII Intact, Oriented x3 - Psychiatric Exam Psychiatric exam: Normal Affect, Normal Mood - Skin Skin Exam: Intact, Normal Color Assessment and Plan - Assessment and Plan (Free Text) Assessment: 77 yo male with 3 days of profuse diarrhea. Fevers up to 102.8 F. Obtain Abdominal X-ray to help determine colitis/diverticulitis. Patient may need CT scan. IV hydration. Supportive care. On IV Rocephin and Flagyl at this time. C. diff studies. Stool studies. Would obtain tabares cultures with next fever. Urine cultures with gram negative rods identified as Klebsiella. Supportive care. Switched antibiotics to Cefepime for treatment. Would prefer to continue with Cefepime treatment while in the hospital. Consider 5-7 days of treatment. When ready for discharge from the hospital, can consider use of Omnicef 300mg PO BID to complete treatment (would give up to 7 days of treatment ). Await colonoscopy findings. Thank you for allowing me to participate in the care of the patient, we will follow with you.
--- NOTE | 2017-06-29 02:48 | DS ---
FINAL DIAGNOSES: Gastroenteritis, improved; severe diarrhea, improved; chronic renal failure stage III; acute dehydrational azotemia; acute azotemia secondary to dehydration; anemia of chronic disease; iron-deficiency anemia; metabolic acidosis, improved; microhematuria; urinary tract infection with Klebsiella pneumoniae. DISPOSITION: Home to care of his , Kory Borges, registered nurse. CONSULTANTS: Dr. Snider, GI and Dr. Cordova, Infectious Disease. DISCHARGE DIET: Soft bland high-fiber. DISCHARGE MEDICATIONS: Include Omnicef 300 mg p.o. b.i.d. #14, no refills, Norvasc 5 mg p.o. daily, Pepcid 20 mg p.o. at bedtime., Protonix 20 mg p.o. q.a.m., Lipitor 10 mg p.o. at bedtime. Follow up in my office in 1 week. DISCHARGE INSTRUCTIONS: Medications and followup discussed in detail with the , Kory Borges. SUMMARY: This 77-year-old male was admitted to [facility] after presenting to the emergency room with a greater than 72-hour diarrheal illness that left the patient markedly dehydrated, azotemic and weak and deconditioned. He was admitted, fully cultured, started on parenteral antibiotics and IV fluids and was seen in consultation by Gastroenterology and Infectious Disease. His stool for ova and parasites was negative. Stool for occult culture showed no Salmonella, Shigella or Campylobacter. Stool C. diff toxin antibody and antigens were negative. Blood cultures showed no growth and urinary cultures grew Klebsiella pneumoniae sensitive to Maxipime. The patient was initially treated with IV Flagyl, IV Zosyn that was switched to IV Maxipime and at the time of discharge, the patient was recommended to complete a additional 7-course of oral Omnicef. At that time, the patient had x-rays including renal ultrasound that showed no masses, no hydronephrosis, no stones and an abdominal pelvic CT that showed gallstones, normal appendix and mural thickening within the rectum for which direct visualization was recommended to rule out malignancy. No diverticulosis or diverticulitis was noted on the CT of abdomen and pelvis. Of note, kidneys and ureter showed no acute findings, no hydronephrosis or calculi or discrete solid masses. Patient prior to discharge had a colonoscopy that revealed internal hemorrhoids, diverticulosis of the sigmoid and descending colon and no tumor masses. He was cleared for discharge by Dr. Qi Snider from GI and Dr. Dwight Cordova from Infectious Disease. His diet, medications and instructions were reviewed in detail with himself and his , Kory Borges, registered nurse. Greater than 35 minutes was spent in the care, review of labs, x-rays, medications, co-consultants reports with the patient, , nursing and all questions were answered. Hopefully, the patient will be compliant with the above recommendations. He is also advised to follow up with Dr. Qi Snider for an outpatient endoscopy and was given a prescription for ferrous gluconate [id number] 324 mg p.o. t.i.d. for his iron-deficiency anemia with white cell count 8000, hemoglobin 9.1, hematocrit 28.5 and platelets 243,000. Also of note, his PSA was 0.5. His percent saturation was 5%. Iron levels were low at 13 and both the patient and were reminded that they will need to follow up with Urology for cystoscopy and retrograde pyelograms for completeness sake, given his asymptomatic microhematuria. Hopefully, they will be compliant with these recommendations. Maya Rodriguez MD MTDD
== END 2017-06-28 14:50 | disposition home or self-care (01) | DRG 683 ==
LOC: ED 15:57 → ERH 19:48 → 5RNO 22:22 → OBSVTOIN 06-26 10:29
PROVIDERS: ADMIT Internal Medicine; ATTEND Internal Medicine
PROC: 0DJD8ZZ Inspection of Lower Intestinal Tract, Via Natural or Artificial Opening Endoscopic (ICD-10-PCS; principal; 2017-06-28 10:00)
DX: N17.9 Acute kidney failure, unspecified (principal); E87.2 Acidosis; B96.1 Klebsiella pneumoniae [K. pneumoniae] as the cause of diseases classified elsewhere; N39.0 Urinary tract infection, site not specified; E86.0 Dehydration; I12.9 Hypertensive chronic kidney disease with stage 1 through stage 4 chronic kidney disease, or unspecified chronic kidney disease; E78.00 Pure hypercholesterolemia, unspecified; E78.5 Hyperlipidemia, unspecified; D50.9 Iron deficiency anemia, unspecified; D63.8 Anemia in other chronic diseases classified elsewhere; F41.1 Generalized anxiety disorder; K21.9 Gastro-esophageal reflux disease without esophagitis; K52.9 Noninfective gastroenteritis and colitis, unspecified; K57.30 Diverticulosis of large intestine without perforation or abscess without bleeding; K64.8 Other hemorrhoids; N18.3 Chronic kidney disease, stage 3 (moderate); R31.29 Other microscopic hematuria; Z79.899 Other long term (current) drug therapy; Z87.11 Personal history of peptic ulcer disease

== ENCOUNTER 2018-11-11 07:59 | Day surgery (SDC) | payer MEDICARE ==
[2018-11-11] MEDS ORDERED: Propofol 10 mg/ml Inj (20 ML) ONE ×2 (08:32→09:16)
[2018-11-11] MEDS ORDERED: Sodium Chloride 0.9% 1,000 ML IV SCH (09:00)
[2018-11-11] MEDS ORDERED: ePHEDrine 50 mg/ml Inj ONE (09:58)
[2018-11-11 12:51] VITALS: BP 133/68; PULSE 54; RESP 18; TEMP 97.7; O2SAT 95
== END 2018-11-11 11:45 | disposition home or self-care (01) ==
LOC: ENDO 07:59
PROVIDERS: ATTEND Internal Medicine Gastroenterology
DX: D12.2 Benign neoplasm of ascending colon (principal); D12.3 Benign neoplasm of transverse colon; D12.5 Benign neoplasm of sigmoid colon; K57.90 Diverticulosis of intestine, part unspecified, without perforation or abscess without bleeding; K64.8 Other hemorrhoids; K22.2 Esophageal obstruction; K31.811 Angiodysplasia of stomach and duodenum with bleeding; K29.70 Gastritis, unspecified, without bleeding; I12.9 Hypertensive chronic kidney disease with stage 1 through stage 4 chronic kidney disease, or unspecified chronic kidney disease; N18.9 Chronic kidney disease, unspecified; R13.10 Dysphagia, unspecified; K21.9 Gastro-esophageal reflux disease without esophagitis
CPT/HCPCS: 43239; 43270; 45380; 45385; 88305; 88312; J2001; J2704; J7030